=== PATIENT | female | born 1970 | race Caucasian/White ===

== ENCOUNTER 2021-06-13 16:42 | Outpatient (CLI) | payer BC, SELFPAY ==
--- NOTE | ~2021-06-13 | MR_ITS ---
EXAMINATION: MR knee RT wo con DATE: 06/13/2021 17:50 INDICATION: Acute right knee pain. TECHNIQUE: Magnetic resonance imaging (MRI) of the right knee was performed without intravenous contr ast. Sequences included axial PD-weighted FS FSE, coronal PD-weighted FSE and PD-weighted FS FSE, sag ittal PD-weighted FSE, and sagittal T2-weighted FS FSE. COMPARISON: None. FINDINGS: Medial compartment: There is an undersurface horizontal tear of body and posterior horn of medial meniscus. There is shal low partial-thickness cartilage loss of tibial condyle and femoral condyle, worst at the central lea cular surface of femoral condyle. There are tiny osteophytes. Lateral compartment: Lateral meniscus is normal. There is shallow partial-thickness cartilage loss of femoral condyle and tibial condyle, worst at their central articular surfaces. There are tiny osteophytes. Patellofemoral compartment: There is full-thickness cartilage loss of patellar lateral facet and deep partial thickness cartilage loss of patellar median ridge and lateral aspect of medial facet with mild subchondral edema-like ma rrow signal intensity. There is deep partial thickness cartilage loss of lateral trochlea with mild s ubchondral edema-like marrow signal intensity. There are tiny marginal osteophytes. Ligaments and tendons: The anterior and posterior cruciate ligaments are normal. Medial collateral ligament and lateral suzie ateral ligament complex are intact. There is mild patellar tendinopathy. Fluid: There is a small knee joint effusion. IMPRESSION: 1. Severe chondrosis of patellofemoral compartment and mild chondrosis of medial and lateral compartm ents. 2. Tear of medial meniscus. 3. Small knee joint effusion. Reviewed, dictated and finalized at location A. C [employer] IMPRESSION: 1. Severe chondrosis of patellofemoral compartment and mild chondrosis of media l and lateral compartments. 2. Tear of medial meniscus. 3. Small knee joint effusion.
== END 2021-06-13 16:43 | disposition home or self-care (01) ==
LOC: ANHIMG 16:59
PROVIDERS: Visit Provider Orthopaedic Surgery
DX: S83.241A Other tear of medial meniscus, current injury, right knee, initial encounter (principal); M25.461 Effusion, right knee
CPT/HCPCS: 73721